=== PATIENT | female | born 1960 | race Caucasian/White ===

== ENCOUNTER 2018-04-01 13:02 | Emergency (ER) | payer OTHER ==
[2018-04-01] MEDS: METHYLPREDNISOLONE 125 MG INJ IM (14:16)
[2018-04-01] MEDS: DIPHENHYDRAMINE 50 MG INJ IM (14:16)
== END 2018-04-01 15:27 | disposition home or self-care (01) ==
LOC: FTE 13:02
DX: L23.9 Allergic contact dermatitis, unspecified cause (principal)
CPT/HCPCS: 96372; 99284-25

== ENCOUNTER 2019-03-23 12:31 | Emergency (ER) | payer OTHER ==
[2019-03-23] MEDS: ACETAMINOPHEN 500 MG TAB PO (14:42)
== END 2019-03-23 15:16 | disposition home or self-care (01) ==
LOC: FTE 12:31
DX: K08.89 Other specified disorders of teeth and supporting structures (principal); R51 Headache
CPT/HCPCS: 99282; Z7502